=== PATIENT | female | born 1985 | race Caucasian/White ===

== ENCOUNTER 2021-12-25 15:31 | Inpatient (IN) | payer BC ==
[~2021-12-25] VITALS: Ht 152.4 cm; Wt 50.7 kg
[2021-12-25] MEDS ORDERED: 0.9%NACL 1000ML 1,000 ML IV ONE (16:00)
[2021-12-25 16:28] LABS: BASOPHILS % (AUTO) 0.4 % (0.0-5.0); HEMATOCRIT 40.1 % (36-48); LYMPHOCYTES % (AUTO) 22.6 % (21.0-51.0); MEAN CORPUSCULAR HEMOGLOBIN 33.7 pg (27.0-33.0); MEAN CORPUSCULAR HGB CONC 34.9 g/dL (32.0-36.0); MEAN CORPUSCULAR VOLUME 96.4 fL (79-99); MONOCYTES % (AUTO) 6.1 % (3.0-13.0); NEUTROPHILS % (AUTO) 70.3 % (40.0-77.0); PLATELET COUNT (AUTO) 190 K/uL (130-400); RED BLOOD CELL COUNT(AUTO) 4.16 MIL/uL (4.00-5.50); RED CELL DISTRIBUTION WIDTH 11.9 % (11.0-15.5); WHITE BLOOD COUNT (AUTO) 4.9 K/uL (4.8-10.8)
[2021-12-25] MEDS ORDERED: ONDANSETRON 4MG INJ ONE (16:39)
[2021-12-25] MEDS ORDERED: LORAZEPAM 2 MG/ML 1 ML VIAL ONE (16:40)
[2021-12-25 16:44] LABS: ALANINE AMINOTRANSFERASE 121 U/L (12-78); ALBUMIN 4.8 g/dL (3.5-5.0); ALCOHOL, BLOOD < 3 mg/dL (0-10); ASPARTATE AMINOTRANSFERASE 119 U/L (10-37); CARBON DIOXIDE 28 mmol/L (21-32); CHLORIDE 97 mmol/L (101-111); CREATININE 2.5 mg/dL (0.5-1.5); GLOMERULAR FILTR. RATE CALC 23 mL/min (>60); GLUCOSE,RANDOM 187 mg/dL (70-105); SODIUM SERUM 138 mmol/L (136-145); TOTAL PROTEIN, SERUM 8.5 g/dL (6.0-8.3); UREA NITROGEN, BLOOD 9 mg/dL (7-18)
[2021-12-25 16:47] LABS: POTASSIUM 2.9 mmol/L (3.5-5.1)
[2021-12-25] MEDS ORDERED: POTASSIUM BICARB/CIT AC 25 MEQ TABLET.EFF ONE (16:55)
[2021-12-25] MEDS ORDERED: 0.9% NACL 500ML IV.SOLN 500 ML IV ONE ×2 (16:57→17:00)
[2021-12-25] MEDS ORDERED: ONDANSETRON 4MG INJ IVP ONE (17:00)
[2021-12-25] MEDS ORDERED: LORAZEPAM 2 MG/ML 1 ML VIAL IVP ONE (17:00)
[2021-12-25] MEDS ORDERED: POTASSIUM BICARB/CIT AC 25 MEQ TABLET.EFF PO ONE (17:00)
[2021-12-25] MEDS ORDERED: CHLORDIAZEPOXIDE HCL 25 MG CAP PO PRN ×2 (18:30)
[2021-12-25] MEDS ORDERED: PHARMACY COMMUNICATION MISC PRN (18:30)
[2021-12-25] MEDS ORDERED: LORAZEPAM 2 MG/ML 1 ML VIAL IVP PRN (18:30)
[2021-12-25] MEDS ORDERED: 0.9%NACL 1000ML 1,000 ML IV SCH (18:30)
[2021-12-25 18:48] LABS: MAGNESIUM 1.6 mg/dL (1.80-2.40); PHOSPHORUS 3.4 mg/dL (2.5-4.9)
[2021-12-25] MEDS: ONDANSETRON 4MG INJ IV PRN (18:56)
[2021-12-25] MEDS: 0.9%NACL 1000ML 1,000 ML IV SCH (18:56)
[2021-12-25] MEDS ORDERED: POTASSIUM CHLORIDE 10% ELIXIR 20 MEQ/15 ML UDCUP PO PRN (19:00)
[2021-12-25] MEDS: ASPIRIN 81 MG EC TAB PO SCH (19:00)
[2021-12-25] MEDS ORDERED: ACETAMINOPHEN 325 MG TAB PO PRN (19:00)
[2021-12-25] MEDS: THIAMINE HCL 100 MG, FOLIC ACID 1 MG, M.V.I. IV [ADULT] 10 ML in 0.9%NACL 1000ML 1,000 ML IV SCH (19:00)
[2021-12-25] MEDS ORDERED: LIDOCAINE HCL-MPF 1% 2ML VIAL IJ PRN (19:00)
[2021-12-25] MEDS ORDERED: KCL 20 MEQ ERTAB PO PRN (19:00)
[2021-12-25] MEDS ORDERED: POTASSIUM CHLORIDE 20MEQ/100ML 100 ML IV PRN (19:00)
[2021-12-25] MEDS ORDERED: NITROGLYCERIN 0.4 MG SL TAB SL PRN (19:00)
[2021-12-25 19:14] LABS: AMYLASE 40 U/L (25-115)
[2021-12-25 19:15] LABS: LIPASE 40 U/L (114-286)
[2021-12-25] MEDS ORDERED: MAGNESIUM 2GM PREMIX 50ML 50 ML IV SCH (19:30)
[2021-12-25] MEDS: MAGNESIUM 2GM PREMIX 50ML 50 ML IV PRN (19:42)
[2021-12-25 22:59] LABS: POTASSIUM 3.7 mmol/L (3.5-5.1)
[2021-12-25] MEDS: HEPARIN 5,000 UNIT VIAL SQ SCH (23:14)
[2021-12-25] MEDS ORDERED: HYDROCODONE/ACETAMINOPHEN 5/325 MG TAB PO ONE (23:30)
[2021-12-26] MEDS: LORAZEPAM 2 MG/ML 1 ML VIAL IVP PRN ×3 (05:07→22:31)
[2021-12-26] MEDS: ONDANSETRON 4MG INJ IV PRN (05:07)
[2021-12-26 05:39] LABS: ALBUMIN 3.8 g/dL (3.5-5.0); CREATININE 2.2 mg/dL (0.5-1.5); MAGNESIUM 1.9 mg/dL (1.80-2.40); POTASSIUM 3.2 mmol/L (3.5-5.1); TOTAL PROTEIN, SERUM 6.7 g/dL (6.0-8.3)
[2021-12-26] MEDS: 0.9%NACL 1000ML 1,000 ML IV SCH (05:39)
[2021-12-26] MEDS ORDERED: KCL 20 MEQ ERTAB PO ONE (06:00)
[2021-12-26 07:15] LABS: APPEARANCE,URINE CLOUDY (CLEAR); BILIRUBIN,URINE NEGATIVE (NEGATIVE); COLOR,URINE LIGHT-YELLOW (YELLOW); GLUCOSE, URINE (UA) 30 mg/dL (NEGATIVE); KETONES,URINE 60 mg/dL (NEGATIVE); LEUKOCYTE ESTERASE ,URINE NEGATIVE Leu/uL (NEGATIVE); NITRATE,URINE NEGATIVE (NEGATIVE); OCCULT BLOOD,URINE NEGATIVE (NEGATIVE); PROTEIN,URINE NEGATIVE (NEGATIVE); UROBILINOGEN,URINE 0.2 mg/dL (0.2-1.0)
[2021-12-26 07:27] LABS: HCG,QUALITATIVE URINE NEGATIVE (NEGATIVE)
[2021-12-26 07:38] LABS: MUCUS,URINE RARE LPF (None Seen); SQUAMOUS EPITHELIAL CELL,UR MANY /HPF (0-2); WBC,URINE 0-1 /HPF (0-1)
[2021-12-26 07:44] LABS: AMPHET/METH SCREEN,URINE NEGATIVE (NEGATIVE); BARBITURATE SCREEN, URINE NEGATIVE (NEGATIVE); BENZODIAZEPINES SCREEN,URINE NEGATIVE (NEGATIVE); CANNABINOID SCREEN,URINE NEGATIVE (NEGATIVE); COCAINE SCREEN,URINE NEGATIVE (NEGATIVE); PHENCYCLIDINE SCREEN,URINE NEGATIVE (NEGATIVE)
[2021-12-26 07:53] LABS: BASOPHILS % (AUTO) 0.8 % (0.0-5.0); EOSINOPHILS % (AUTO) 0.6 % (0.0-8.0); HEMATOCRIT 31.2 % (36-48); LYMPHOCYTES % (AUTO) 37.4 % (21.0-51.0); MEAN CORPUSCULAR HEMOGLOBIN 33.2 pg (27.0-33.0); MEAN CORPUSCULAR VOLUME 97.8 fL (79-99); MONOCYTES % (AUTO) 10.5 % (3.0-13.0); NEUTROPHILS % (AUTO) 50.1 % (40.0-77.0); PLATELET COUNT (AUTO) 147 K/uL (130-400); RED BLOOD CELL COUNT(AUTO) 3.19 MIL/uL (4.00-5.50); WHITE BLOOD COUNT (AUTO) 5.2 K/uL (4.8-10.8)
[2021-12-26] MEDS: HEPARIN 5,000 UNIT VIAL SQ SCH ×3 (08:11→22:03)
[2021-12-26] MEDS: ASPIRIN 81 MG EC TAB PO SCH (08:11)
[2021-12-26] MEDS ORDERED: FAMOTIDINE 20MG TAB PO SCH (09:00)
[2021-12-26 10:00] VITALS: BP 114/80
[2021-12-26 16:16] VITALS: BP 123/79
[2021-12-26] MEDS ORDERED: METOPROLOL TARTRATE 25 MG TAB PO ONE (17:30)
[2021-12-26] MEDS: THIAMINE HCL 100 MG, FOLIC ACID 1 MG, M.V.I. IV [ADULT] 10 ML in 0.9%NACL 1000ML 1,000 ML IV SCH (17:34)
[2021-12-26 19:51] VITALS: BP 111/76
[2021-12-26] MEDS ORDERED: MAGNESIUM OXIDE 400 MG TABLET PO SCH (21:00)
[2021-12-27] VITALS: BP 118/75
[2021-12-27 04:11] VITALS: BP 116/72
[2021-12-27 05:41] LABS: ALBUMIN 3.8 g/dL (3.5-5.0); CREATININE 1.5 mg/dL (0.5-1.5); MAGNESIUM 1.8 mg/dL (1.80-2.40); POTASSIUM 3.5 mmol/L (3.5-5.1); TOTAL PROTEIN, SERUM 6.9 g/dL (6.0-8.3)
[2021-12-27] MEDS: MAGNESIUM 2GM PREMIX 50ML 50 ML IV PRN (06:31)
[2021-12-27 07:40] VITALS: BP 112/68
== END 2021-12-27 10:00 | disposition home or self-care (01) | DRG 683 ==
LOC: EDH 15:31 → EDHIP 18:25 → 3CH 12-26 09:31
PROVIDERS: ADMIT Hospitalist; ATTEND Hospitalist
DX: N17.9 Acute kidney failure, unspecified (principal); F10.139 Alcohol abuse with withdrawal, unspecified; R00.0 Tachycardia, unspecified; E86.0 Dehydration; Z20.822 Contact with and (suspected) exposure to COVID-19; E87.6 Hypokalemia; E78.5 Hyperlipidemia, unspecified; E83.42 Hypomagnesemia; F17.210 Nicotine dependence, cigarettes, uncomplicated; G40.909 Epilepsy, unspecified, not intractable, without status epilepticus
CPT/HCPCS: 36415; 71045; 73080; 80053; 80061; 80305; 81001; 81025; 82140; 82150; 82330; 82550; 83690; 83735; 83874; 84100; 84132; 84484; 85025; 87635; 87804; 93005; C9803; G0378; J1644; J2060; J2405; J3411; J3475; J3490; J7030; J7040

== ENCOUNTER 2022-12-03 10:11 | Emergency (ER) | payer BC ==
[~2022-12-03] VITALS: Ht 152.4 cm; Wt 36.7 kg
[2022-12-03 10:18] VITALS: BP 98/69; PULSE 101; RESP 16; O2SAT 98
[2022-12-03] MEDS ORDERED: ACETAMINOPHEN 325 MG TAB PO ONE (12:30)
[2022-12-03 12:52] LABS: APPEARANCE,URINE CLEAR (CLEAR); BILIRUBIN,URINE NEGATIVE (NEGATIVE); GLUCOSE, URINE (UA) NEGATIVE (NEGATIVE); KETONES,URINE 40 mg/dL (NEGATIVE); LEUKOCYTE ESTERASE ,URINE NEGATIVE Leu/uL (NEGATIVE); NITRATE,URINE NEGATIVE (NEGATIVE); OCCULT BLOOD,URINE NEGATIVE (NEGATIVE); PH,URINE 7.5 (5.0-8.0); PROTEIN,URINE NEGATIVE (NEGATIVE); UROBILINOGEN,URINE 0.2 mg/dL (0.2-1.0)
[2022-12-03 12:53] LABS: ADD UA MICROSCOPIC YES; COLOR,URINE LIGHT-YELLOW (YELLOW)
[2022-12-03 12:56] LABS: SQUAMOUS EPITHELIAL CELL,UR MOD /HPF (0-2); WBC,URINE 0-1 /HPF (0-1)
[2022-12-03 13:03] LABS: AMPHET/METH SCREEN,URINE POSITIVE (NEGATIVE); BARBITURATE SCREEN, URINE NEGATIVE (NEGATIVE); BENZODIAZEPINES SCREEN,URINE NEGATIVE (NEGATIVE); CANNABINOID SCREEN,URINE NEGATIVE (NEGATIVE); COCAINE SCREEN,URINE NEGATIVE (NEGATIVE); OPIATE SCREEN,URINE NEGATIVE (NEGATIVE); PHENCYCLIDINE SCREEN,URINE NEGATIVE (NEGATIVE)
[2022-12-03 13:08] LABS: HCG,QUALITATIVE URINE NEGATIVE (NEGATIVE)
[2022-12-03] MEDS ORDERED: ONDA4TAB10 PO ×2 (13:42→13:58)
[2022-12-03] MEDS ORDERED: OCTYL 2-CYANOACRYLATE 1 EACH TP ONE (14:16)
[2022-12-03] MEDS ORDERED: ACET-2079 PO (14:24)
[2022-12-03] MEDS ORDERED: KETOROLAC 15MG/ML VIAL (15MG/ML) IM ONE (14:30)
== END 2022-12-03 14:40 | disposition home or self-care (01) ==
LOC: EDH 10:11
DX: S00.83XA Contusion of other part of head, initial encounter (principal); W18.39XA Other fall on same level, initial encounter; Y93.89 Activity, other specified; Y92.89 Other specified places as the place of occurrence of the external cause; Y99.8 Other external cause status; Z90.49 Acquired absence of other specified parts of digestive tract
CPT/HCPCS: 99284; 70486; 80305; 84703; 81025; 36415; 12001; 96372; 81001; J1885

== ENCOUNTER 2023-01-20 17:52 | Emergency (ER) | payer BC, OTHER ==
[~2023-01-20] VITALS: Ht 152.4 cm; Wt 38.6 kg
[~2023-01-20 17:52] MED LIST: ACET-2079 PO; ONDA4TAB10 PO
[2023-01-20 17:55] VITALS: BP 111/78; PULSE 93; RESP 20
[2023-01-20] MEDS ORDERED: IBUPROFEN 600 MG TABLET PO ONE (18:30)
[2023-01-20] MEDS ORDERED: CYCLOBENZAPRINE HCL 10 MG TABLET PO ONE (20:00)
[2023-01-20] MEDS ORDERED: METH-811 PO (20:01)
== END 2023-01-20 20:22 | disposition home or self-care (01) ==
LOC: EDH 17:52
DX: S63.591A Other specified sprain of right wrist, initial encounter (principal); S83.8X1A Sprain of other specified parts of right knee, initial encounter; Z79.899 Other long term (current) drug therapy; Z90.49 Acquired absence of other specified parts of digestive tract; X58.XXXA Exposure to other specified factors, initial encounter; Y93.89 Activity, other specified; Y92.89 Other specified places as the place of occurrence of the external cause; Y99.8 Other external cause status
CPT/HCPCS: 73100; 73562

== ENCOUNTER → 2023-02-10 | Outpatient (CLI) | payer OTHER ==
[~2023-02-10] MED LIST changes: +METH-811 PO
== END | disposition home or self-care (01) ==
LOC: RAH 11:51
PROVIDERS: ATTEND Physician Assistant
DX: S83.91XD Sprain of unspecified site of right knee, subsequent encounter (principal); M17.11 Unilateral primary osteoarthritis, right knee; M23.91 Unspecified internal derangement of right knee; M25.561 Pain in right knee; R26.9 Unspecified abnormalities of gait and mobility
CPT/HCPCS: 73721